=== PATIENT | female | born 1970 | race Native Hawaiian/Other Pacific Islander ===

== ENCOUNTER 2016-11-21 14:03 | Outpatient (CLI) | payer OTHER | END 2016-11-21 22:41 | disposition home or self-care (01) | LOC: MRI 14:03 | DX: M54.5 Low back pain (principal); M79.605 Pain in left leg; M79.604 Pain in right leg ==

== ENCOUNTER 2017-03-26 13:21 | Outpatient (CLI) | payer OTHER ==
[2017-03-26 13:42] LABS: PLATELET COUNT 287 K/uL (152-353)
[2017-03-26 13:57] LABS: POTASSIUM 5.4 mmol/L (3.6-5.2); SODIUM 133 mmol/L (136-145)
== END 2017-03-26 14:25 | disposition home or self-care (01) ==
LOC: LAB 13:21
PROVIDERS: Family Medicine
DX: I10 Essential (primary) hypertension (principal); E78.4 Other hyperlipidemia
CPT/HCPCS: 80053; 80061; 81000; 82043; 82306; 82570; 83735; 84439; 84443; 84550; 85027

== ENCOUNTER 2022-07-26 08:27 | Outpatient (CLI) | payer OTHER ==
[2022-07-26 09:14] LABS: PLATELET COUNT 294 K/uL (152-353)
[2022-07-26 09:33] LABS: POTASSIUM 5.1 mmol/L (3.6-5.2)
== END 2022-07-26 19:00 | disposition home or self-care (01) ==
LOC: RAD 08:27
PROVIDERS: ATTEND Family Medicine
DX: M54.89 Other dorsalgia (principal); M54.10 Radiculopathy, site unspecified; M25.551 Pain in right hip; M79.651 Pain in right thigh; I10 Essential (primary) hypertension; F17.200 Nicotine dependence, unspecified, uncomplicated; J44.9 Chronic obstructive pulmonary disease, unspecified; E55.9 Vitamin D deficiency, unspecified; K21.9 Gastro-esophageal reflux disease without esophagitis
CPT/HCPCS: 36415; 80053; 80061; 81002; 82306; 83735; 84443; 84550; 85027